=== PATIENT | male | born 1950 | race African-American/Black ===

== ENCOUNTER 2016-12-03 09:42 | Emergency (ER) | payer OTHER ==
[~2016-12-03] VITALS: Ht 175.3 cm; Wt 102.1 kg
[~2016-12-03 09:42] MED LIST: IBUPROFEN 600600 M1 PO; LISINOPRIL20 MG; NORCO 5-325 TA1 EACH PO
[2016-12-03] MEDS ORDERED: HYDROCODONE-AP1 EAC6 PO (10:37)
[2016-12-03] MEDS ORDERED: NORVASC2.5 MG PO (10:51)
[2016-12-03 10:52] VITALS: BP 150/94
== END 2016-12-03 10:54 | disposition home or self-care (01) ==
LOC: ER 09:42
DX: M54.5 Low back pain (principal); I10 Essential (primary) hypertension; Z86.73 Personal history of transient ischemic attack (TIA), and cerebral infarction without residual deficits

== ENCOUNTER 2016-12-09 17:21 | Emergency (ER) | payer OTHER ==
[~2016-12-09] VITALS: Ht 175.3 cm; Wt 102.1 kg
[~2016-12-09 17:21] MED LIST changes: +HYDROCODONE-AP1 EAC6 PO; +NORVASC2.5 MG PO
[2016-12-09 17:29] VITALS: BP 178/112
[2016-12-09] MEDS ORDERED: MEDROLDOSEPACK PO (18:08)
[2016-12-09] MEDS ORDERED: FLEXERIL PO (18:08)
== END 2016-12-09 18:38 | disposition home or self-care (01) ==
LOC: ER 17:21
DX: M54.41 Lumbago with sciatica, right side (principal); I10 Essential (primary) hypertension; Z86.73 Personal history of transient ischemic attack (TIA), and cerebral infarction without residual deficits

== ENCOUNTER 2020-07-12 07:11 | Emergency (ER) | payer OTHER ==
[~2020-07-12] VITALS: Ht 172.7 cm; Wt 99.8 kg
[2020-07-12 07:11] VITALS: BP 139/77
[~2020-07-12 07:11] MED LIST changes: +FLEXERIL PO; +MEDROLDOSEPACK PO
== END 2020-07-12 07:50 | disposition left against medical advice (07) ==
LOC: ER 07:11
DX: R51.9 Headache, unspecified (principal); I10 Essential (primary) hypertension; G89.29 Other chronic pain; M54.9 Dorsalgia, unspecified; Z79.899 Other long term (current) drug therapy